=== PATIENT | female | born 1955 | race Caucasian/White ===

== ENCOUNTER 2018-12-23 23:34 | Emergency (ER) | payer MEDICARE, MEDICAID ==
[2018-12-24 00:05] LABS: #Basophils 0.1 thou/uL (0.0-0.2); #Eosinphils 0.1 thou/uL (0.0-0.7); #Lymphocytes 2.3 thou/uL (1.20-3.40); #Monocytes 0.8 thou/uL (0.11-0.59); #Neutrophils 5.8 thou/uL (1.40-6.50); %Basophils 0.8 % (0.0-1.0); %Eosinophils 0.9 % (0.0-10.0); %Lymphocytes 25.1 % (21.0-51.0); %Monocytes 8.6 % (0.0-10.0); %Neutrophils 64.6 % (42.0-75.0); Hemoglobin 14.7 g/dL (12.0-16.0); Mean Corpuscular HGB CONC 33.4 g/dL (32.0-36.0); Mean Corpuscular Hemoglobin 31.8 pg (27.0-31.0); Mean Corpuscular Volume 95.1 fL (78.0-98.0); Mean Platelet Volume 6.9 fL (7.4-10.4); Platelet Count 347 thou/uL (130-400); RBC Distribution Width 13.4 % (11.5-14.5); Red Blood Cell (RBC) Count 4.62 mill/uL (4.20-5.40)
[2018-12-24 00:28] LABS: ALT (SGPT) 18 U/L (8-55); AST (SGOT) 30 U/L (5-34); Albumin 3.7 g/dL (3.4-4.8); Alkaline Phosphatase 76 U/L (40-150); Anion Gap 16 mmol/L (10-20); BUN (Urea Nitrogen) 14 mg/dL (9.8-20.1); Bilirubin, Total 0.3 mg/dL (0.2-1.2); Calc. Creatinine Clearance 0 mL/min (70-130); Calcium 9.6 mg/dL (7.8-10.44); Carbon Dioxide 25 mmol/L (23-31); Chloride 100 mmol/L (98-107); Estimated GFR-MDRD 55; Globulin 3.8 g/dL (2.4-3.5); Glucose 124 mg/dL (80-115); Potassium 4.4 mmol/L (3.5-5.1); Protein, Total 7.5 g/dL (6.0-8.3); Sodium 137 mmol/L (136-145)
[2018-12-24 01:26] LABS: Bilirubin Negative (Negative); Blood, Urine Small (Negative); Clarity CLOUDY (Clear); Glucose, Urine (Dipstick) Negative (Negative); Leukocyte Large (Negative); Nitrite Positive (Negative); Protein, Urine (Dipstick) Negative (Neg-Trace); Specific Gravity, Urine 1.005 (1.002-1.036); Urobilinogen 0.2 mg/dL (0.2-1.0)
[2018-12-24 01:28] LABS: Pathc Cast-AUWi Flag 1.36 (0-2.49)
[2018-12-24 01:37] LABS: RBC/HPF 0-3 HPF (0-3)
[2018-12-24 01:39] LABS: Renal Epithelial None Seen HPF (0-3); Transitional Epithelial NONE SEEN HPF (0-3); Yeast-All Forms None Seen HPF (None Seen)
[2018-12-24 01:40] LABS: Bacteria/HPF 1+ HPF (None Seen); Crystals/HPF None Seen HPF (Negative); Hyaline Casts/LPF NONE SEEN LPF (0-3 Hyaline); Other Casts/LPF None Seen LPF (0-3 Hyaline); Squamous Epithelial 0-3 HPF (0-3)
[2018-12-24] MEDS ORDERED: cefTRIAXone\\ROCEPHIN 1 GM VIAL ONE (02:09)
--- NOTE | 2018-12-24 07:17 | CT ---
PRELIMINARY REPORT/[facility]/EMERGENCY AFTER HOURS PROCEDURE: EXAM: CT Head Without Contrast EXAM DATE/TIME: 12/24/2018 12:48 AM CLINICAL HISTORY: 63 years old, female; Signs and symptoms; Altered mental status/memory loss; Patient HX: 63 y/o F, with h/o down syndrome, presents to ED via EMS transport for weakness and AMS. Per family, PT was unable to get off of the floor with assistance of family as PT is normally able to do. 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 PT is verbal though has not talked as much as she normally does this evening TECHNIQUE: Imaging protocol: Axial computed tomography images of the head without contrast. COMPARISON: No relevant prior studies available. FINDINGS: Brain: There is parenchymal atrophy. Scattered areas of hypoattenuation, likely chronic small vessel ischemic change, demyelination, or gliosis. No mass, hemorrhage, or acute infarction. Ventricles: Normal. Bones/joints: Normal. Sinuses: Normal as visualized. Mastoid air cells: Fluid within the right mastoid air cells. Soft tissues: Unremarkable. IMPRESSION: No acute intracranial abnormality. Thank you for allowing us to participate in the care of your patient. Dictated and Authenticated by: Sameer Rivas MD 12/24/2018 1:30 AM Central Time ([place] & [place]) FINAL REPORT EMERGENCY AFTER HOURS BRAIN CT WITHOUT IV CONTRAST: Date: 12/24/18 Time: 0048 hours HISTORY: Altered mental status IMPRESSION: Stable atrophy and chronic white matter ischemic change without mass or bleed. Stable right mastoid o pacification. This report is in agreement with a preliminary report given by Tiffany. Transcribed Date/Time: 12/24/2018 7:40 AM
--- NOTE | 2018-12-26 09:52 | EKG ---
Test Reason : Blood Pressure : / mmHG Vent. Rate : 106 BPM Atrial Rate : 106 BPM P-R Int : 138 ms QRS Dur : 068 ms QT Int : 360 ms P-R-T Axes : 062 066 017 degrees QTc Int : 478 ms Sinus tachycardia Otherwise normal ECG Confirmed by AMAN SEVILLA DO ([id number]), newspaper copy editor ANTONIO HERNANDEZ ([id number]) on 12/26/2018 9:51:49 AM Referred By: Confirmed By:AMAN SEVILLA DO
== END 2018-12-24 04:10 | disposition home or self-care (01) ==
LOC: ERS 23:34
DX: N39.0 Urinary tract infection, site not specified (principal); Z79.899 Other long term (current) drug therapy
CPT/HCPCS: 51701; 70450; 80053; 81003; 81015; 84484; 85025; 87077; 87086; 87186; 93005; 96361; 96365; A4353; J0696

== ENCOUNTER 2020-01-26 17:18 | Emergency (ER) | payer MEDICARE, MEDICAID ==
[2020-01-26] MEDS ORDERED: Lorazepam 2 MG/ML VIAL ONE (17:42)
[2020-01-26 18:00] LABS: #Basophils 0.1 thou/uL (0.0-0.2); #Eosinphils 0.1 thou/uL (0.0-0.7); #Lymphocytes 2.7 thou/uL (1.20-3.40); #Monocytes 0.7 thou/uL (0.11-0.59); #Neutrophils 4.9 thou/uL (1.40-6.50); %Basophils 0.9 % (0.0-1.0); %Eosinophils 1.6 % (0.0-10.0); %Lymphocytes 31.6 % (21.0-51.0); %Monocytes 8.3 % (0.0-10.0); %Neutrophils 57.6 % (42.0-75.0); Hemoglobin 14.8 g/dL (12.0-16.0); Mean Corpuscular HGB CONC 33.8 g/dL (32.0-36.0); Mean Corpuscular Hemoglobin 31.9 pg (27.0-31.0); Mean Corpuscular Volume 94.4 fL (78.0-98.0); Mean Platelet Volume 7.1 fL (7.4-10.4); Platelet Count 363 thou/uL (130-400); RBC Distribution Width 13.2 % (11.5-14.5); Red Blood Cell (RBC) Count 4.65 mill/uL (4.20-5.40); White Blood Cell (WBC) Count 8.6 thou/uL (4.8-10.8)
[2020-01-26 18:21] LABS: ALT (SGPT) 20 U/L (8-55); AST (SGOT) 19 U/L (5-34); Alkaline Phosphatase 88 U/L (40-110); Anion Gap 15 mmol/L (10-20); BUN (Urea Nitrogen) 14 mg/dL (9.8-20.1); Bilirubin, Total 0.2 mg/dL (0.2-1.2); Calc. Creatinine Clearance 0 mL/min (70-130); Calcium 9.4 mg/dL (7.8-10.44); Carbon Dioxide 27 mmol/L (23-31); Chloride 102 mmol/L (98-107); Estimated GFR-MDRD 56; Globulin 3.8 g/dL (2.4-3.5); Glucose 142 mg/dL (80-115); Lipase 16 U/L (8-78); Potassium 3.9 mmol/L (3.5-5.1); Protein, Total 7.8 g/dL (6.0-8.3); Sodium 140 mmol/L (136-145)
[2020-01-26 18:28] LABS: Bacteria/HPF 4+ HPF (None Seen); Bilirubin Negative (Negative); Blood, Urine 1+ (Negative); Clarity Extra Turbid (Clear); Glucose, Urine (Dipstick) Normal (Negative); Leukocyte 500 Leu/uL (Negative); Nitrite 2+ (Negative); Protein, Urine (Dipstick) 20 mg/dL (Neg-Trace); Urobilinogen Normal mg/dL (Less than 2); WBC/HPF Greater than 50 HPF (0-3)
--- NOTE | 2020-01-26 18:53 | RAD ---
EXAM: CHEST ONE VIEW HISTORY: Chest pain. COMPARISON: None FINDINGS: Cardiac silhouette is magnified by projection. Pulmonary vasculature is within normal limits. Lung ap ices are excluded from view secondary to overlying jaw and mandible. A large hiatal hernia is seen overlying the lower midline of the chest and lower mediastinum with mild volume loss seen at the righ t lung base. Visualized lungs are otherwise clear. Osteopenia is present. IMPRESSION: 1. Large hiatal hernia with mild atelectasis right lung base. 2. No acute cardiopulmonary process. 3. Osteopenia.
== END 2020-01-26 19:11 | disposition home or self-care (01) ==
LOC: ERS 17:18
DX: N39.0 Urinary tract infection, site not specified (principal); Z79.899 Other long term (current) drug therapy; Z79.1 Long term (current) use of non-steroidal anti-inflammatories (NSAID)
CPT/HCPCS: 51701; 71045; 80053; 81003; 81015; 83690; 84484; 85025; J2060

== ENCOUNTER 2020-09-15 16:47 | Emergency (ER) | payer MEDICARE, MEDICAID, OTHER ==
[2020-09-15 17:22] LABS: Bacteria/HPF 4+ HPF (None Seen); Bilirubin Negative (Negative); Blood, Urine 2+ (Negative); Clarity Turbid (Clear); Glucose, Urine (Dipstick) Normal (Negative); Ketone, Urine Negative (Negative); Leukocyte 500 Leu/uL (Negative); Nitrite 2+ (Negative); Protein, Urine (Dipstick) 70 mg/dL (Neg-Trace); RBC/HPF Greater than 50 HPF (0-3); Squamous Epithelial 0-3 HPF (0-3); Urobilinogen Normal mg/dL (Less than 2); WBC/HPF Greater than 50 HPF (0-3); pH, Urine 6.5 (5.0-9.0)
[2020-09-15] MEDS ORDERED: cefTRIAXone\\ROCEPHIN 1 GM VIAL ONE (18:26)
== END 2020-09-15 18:47 | disposition home or self-care (01) ==
LOC: ERS 16:47
DX: N39.0 Urinary tract infection, site not specified (principal)
CPT/HCPCS: 51701; 81003; 81015; 87077; 87086; 87186; 96365; J0696

== ENCOUNTER 2020-10-07 12:53 | Emergency (ER) | payer MEDICARE, OTHER ==
[2020-10-07 13:43] LABS: #Eosinphils 0.1 thou/uL (0.0-0.7); #Lymphocytes 2.7 thou/uL (1.20-3.40); #Monocytes 0.6 thou/uL (0.11-0.59); #Neutrophils 3.9 thou/uL (1.40-6.50); %Basophils 0.6 % (0.0-1.0); %Monocytes 8.1 % (0.0-10.0); %Neutrophils 53.5 % (42.0-75.0); Mean Corpuscular HGB CONC 33.3 g/dL (32.0-36.0); Mean Corpuscular Hemoglobin 32.5 pg (27.0-31.0); Mean Corpuscular Volume 97.6 fL (78.0-98.0); Mean Platelet Volume 8.4 fL (7.4-10.4); Platelet Count 244 thou/uL (130-400); RBC Distribution Width 13.3 % (11.5-14.5); Red Blood Cell (RBC) Count 4.63 mill/uL (4.20-5.40); White Blood Cell (WBC) Count 7.4 thou/uL (4.8-10.8)
[2020-10-07 13:44] LABS: PTT 28.1 sec (22.9-36.1); Prothrombin Time 13.2 sec (12.0-14.7)
[2020-10-07 13:45] LABS: Bacteria/HPF 2+ HPF (None Seen); Bilirubin Negative (Negative); Blood, Urine 3+ (Negative); Clarity Turbid (Clear); Glucose, Urine (Dipstick) Normal (Negative); Ketone, Urine Negative (Negative); Leukocyte 250 Leu/uL (Negative); Nitrite Negative (Negative); Protein, Urine (Dipstick) 30 mg/dL (Neg-Trace); RBC/HPF Greater than 50 HPF (0-3); Specific Gravity, Urine 1.029 (1.002-1.036); Urobilinogen Normal mg/dL (Less than 2); WBC/HPF Greater than 50 HPF (0-3); pH, Urine 5.5 (5.0-9.0)
[2020-10-07] MEDS ORDERED: cefTRIAXone\\ROCEPHIN 1 GM VIAL ONE (13:47)
[2020-10-07 13:58] LABS: ALT (SGPT) 15 U/L (8-55); AST (SGOT) 18 U/L (5-34); Albumin 3.7 g/dL (3.4-4.8); Alkaline Phosphatase 80 U/L (40-110); Anion Gap 20 mmol/L (10-20); BUN (Urea Nitrogen) 17 mg/dL (9.8-20.1); Bilirubin, Total 0.5 mg/dL (0.2-1.2); Calc. Creatinine Clearance 0 mL/min (70-130); Calcium 8.8 mg/dL (7.8-10.44); Carbon Dioxide 21 mmol/L (23-31); Chloride 107 mmol/L (98-107); Globulin 3.2 g/dL (2.4-3.5); Glucose 154 mg/dL (80-115); Potassium 3.8 mmol/L (3.5-5.1); Protein, Total 6.9 g/dL (5.8-8.1); Sodium 144 mmol/L (136-145)
== END 2020-10-07 15:26 | disposition home or self-care (01) ==
LOC: ERS 12:53
DX: N39.0 Urinary tract infection, site not specified (principal); Q90.9 Down syndrome, unspecified
CPT/HCPCS: 51701; 80053; 81003; 81015; 83605; 85025; 85610; 85730; 87040; 87086; 94760; 96365; J0696

== ENCOUNTER 2020-10-28 14:24 | Emergency (ER) | payer MEDICARE, OTHER, MEDICAID ==
[~2020-10-28 14:24] MED LIST: Iopamidol-370 76% 500 ML 1 ML ONE
[2020-10-28 14:44] LABS: Bilirubin Negative (Negative); Blood, Urine Negative (Negative); Clarity Clear (Clear); Glucose, Urine (Dipstick) Normal (Negative); Ketone, Urine Negative (Negative); Leukocyte Negative Leu/uL (Negative); Nitrite Negative (Negative); Protein, Urine (Dipstick) Negative (Neg-Trace); Specific Gravity, Urine 1.021 (1.002-1.036); Urobilinogen Normal mg/dL (Less than 2); pH, Urine 6.5 (5.0-9.0)
[2020-10-28] MEDS ORDERED: Piperacillin/Tazobactam 4.5 GM VIAL ONE (15:22)
[2020-10-28 15:32] LABS: #Basophils 0.1 thou/uL (0.0-0.2); #Eosinphils 0.1 thou/uL (0.0-0.7); #Lymphocytes 1.6 thou/uL (1.20-3.40); #Monocytes 0.3 thou/uL (0.11-0.59); #Neutrophils 2.7 thou/uL (1.40-6.50); %Basophils 1.2 % (0.0-1.0); %Eosinophils 1.1 % (0.0-10.0); %Lymphocytes 33.9 % (21.0-51.0); %Monocytes 7.2 % (0.0-10.0); %Neutrophils 56.7 % (42.0-75.0); Hemoglobin 14.3 g/dL (12.0-16.0); Mean Corpuscular HGB CONC 33.4 g/dL (32.0-36.0); Mean Corpuscular Volume 98.8 fL (78.0-98.0); Mean Platelet Volume 7.7 fL (7.4-10.4); Platelet Count 265 thou/uL (130-400); RBC Distribution Width 13.6 % (11.5-14.5); Red Blood Cell (RBC) Count 4.34 mill/uL (4.20-5.40); White Blood Cell (WBC) Count 4.7 thou/uL (4.8-10.8)
[2020-10-28 15:50] LABS: ALT (SGPT) 11 U/L (8-55); AST (SGOT) 20 U/L (5-34); Albumin 3.7 g/dL (3.4-4.8); Alkaline Phosphatase 66 U/L (40-110); Anion Gap 15 mmol/L (10-20); BUN (Urea Nitrogen) 19 mg/dL (9.8-20.1); Bilirubin, Total 0.5 mg/dL (0.2-1.2); Calc. Creatinine Clearance 0 mL/min (70-130); Calcium 9.1 mg/dL (7.8-10.44); Carbon Dioxide 26 mmol/L (23-31); Chloride 105 mmol/L (98-107); Globulin 3.3 g/dL (2.4-3.5); Glucose 132 mg/dL (80-115); Lipase 8 U/L (8-78); Sodium 142 mmol/L (136-145)
[2020-10-28] MEDS ORDERED: Vancomycin 1 GM/200 ML BAG ONE (18:16)
== END 2020-10-28 20:16 | disposition home or self-care (01) ==
LOC: ERS 14:24
DX: K56.41 Fecal impaction (principal)
CPT/HCPCS: 36415; 51701; 71045; 74177; 80053; 81003; 83605; 83690; 85025; 87040; 87086; 93005; 96365; 96366; 96367; J2543; J3370; Q9967

== ENCOUNTER 2021-04-05 09:01 | Inpatient (IN) | payer MEDICARE, MEDICAID ==
[2021-04-05 10:31] LABS: Bacteria/HPF 4+ HPF (None Seen); Bilirubin Negative (Negative); Blood, Urine 3+ (Negative); Clarity Extra Turbid (Clear); Glucose, Urine (Dipstick) Normal (Negative); Ketone, Urine Negative (Negative); Leukocyte 500 Leu/uL (Negative); Nitrite 2+ (Negative); Protein, Urine (Dipstick) 50 mg/dL (Neg-Trace); RBC/HPF Greater than 50 HPF (0-3); Specific Gravity, Urine 1.019 (1.002-1.036); Squamous Epithelial 0-3 HPF (0-3); Transitional Epithelial 0-3 HPF (None Seen); Urobilinogen Normal mg/dL (Less than 2); WBC/HPF Greater than 50 HPF (0-3)
[2021-04-05 10:49] LABS: Hemoglobin 12.5 g/dL (12.0-16.0); Mean Corpuscular HGB CONC 32.2 g/dL (32.0-36.0); Mean Corpuscular Hemoglobin 31.3 pg (27.0-31.0); Mean Corpuscular Volume 97.1 fL (78.0-98.0); Mean Platelet Volume 7.4 fL (7.4-10.4); Platelet Count 294 thou/uL (130-400); RBC Distribution Width 13.1 % (11.5-14.5); White Blood Cell (WBC) Count 24.1 thou/uL (4.8-10.8)
[2021-04-05 11:11] LABS: ALT (SGPT) 43 U/L (8-55); AST (SGOT) 43 U/L (5-34); Albumin 3.3 g/dL (3.4-4.8); Alkaline Phosphatase 72 U/L (40-110); Anion Gap 14 mmol/L (10-20); BUN (Urea Nitrogen) 30 mg/dL (9.8-20.1); Bilirubin, Total 0.5 mg/dL (0.2-1.2); Calc. Creatinine Clearance 0 mL/min (70-130); Calcium 8.7 mg/dL (7.8-10.44); Carbon Dioxide 25 mmol/L (23-31); Chloride 108 mmol/L (98-107); Globulin 3.3 g/dL (2.4-3.5); Glucose 127 mg/dL (80-115); Potassium 4.5 mmol/L (3.5-5.1); Protein, Total 6.6 g/dL (5.8-8.1); Sodium 142 mmol/L (136-145)
[2021-04-05 11:18] LABS: Band 41 % (5-11); Lymphocytes 3 % (21-51); MDiff Complete? YES; Monocytes 7 % (0-10); Neutrophil 48 % (42-75); Platelet Morphology Comment Appears Adequate; Reflex for Review?? YES; Vacuoles SLIGHT
[2021-04-05] MEDS ORDERED: cefTRIAXone\\ROCEPHIN 1 GM VIAL ONE (11:42)
[2021-04-05 13:55] LABS: SARS-CoV-2 NAA Rapid Test Not Detected (NotDetected)
[2021-04-05] MEDS ORDERED: Benzonatate 100 MG CAP PO PRN (15:16)
[2021-04-05] MEDS ORDERED: Albuterol Sulfate 2.5 mg/3 ml Neb NEB PRN (15:18)
[2021-04-05] MEDS ORDERED: Ondansetron PF 4 MG/2 ML Vial IVP PRN ×2 (15:21→15:30)
[2021-04-05] MEDS ORDERED: Acetaminophen 650 MG Suppository PR PRN (15:21)
[2021-04-05] MEDS ORDERED: Acetaminophen 325 MG TAB PO PRN ×2 (15:21→15:30)
[2021-04-05] MEDS ORDERED: Ondansetron ODT 4 MG TAB PO PRN (15:21)
[2021-04-05] MEDS ORDERED: Sodium Chloride 0.9% 1,000 ML IV SCH ×2 (15:30)
[2021-04-05] MEDS ORDERED: Ondansetron ODT 4 MG TAB SL PRN (15:30)
[2021-04-05 16:25] VITALS: BMI 20.8
[2021-04-05 16:29] LABS: Lactic Acid 3.1 mmol/L (0.5-2.2)
[2021-04-05 17:11] LABS: Strep pneumo Urine Ag NEGATIVE (NEGATIVE)
[2021-04-05] MEDS: Azithromycin 500 MG in Sodium Chloride 0.9% 250 ML 250 ML IVPB SCH (17:49)
[2021-04-05] MEDS ORDERED: Sodium Chloride 0.9% 500 ML IV SCH ×2 (20:45)
[2021-04-06] MEDS ORDERED: Sodium Chloride 0.9% 500 ML IV SCH (01:00)
[2021-04-06] MEDS ORDERED: Norepinephrine 8 MG/0.9% NS 250 ML IVPB SCH (01:30)
[2021-04-06] MEDS ORDERED: Norepinephrine 8 MG/0.9% NS 250 ML ONE (01:32)
[2021-04-06] MEDS: Sodium Chloride 0.9% 1,000 ML IV SCH ×4 (01:45→20:36)
[2021-04-06 02:55] LABS: Lactic Acid 0.7 mmol/L (0.5-2.2)
[2021-04-06 02:59] LABS: Band 20 % (5-11); Eosinophils 1 % (0-10); Hemoglobin 10.8 g/dL (12.0-16.0); Lymphocytes 17 % (21-51); MDiff Complete? YES; Mean Corpuscular HGB CONC 33.5 g/dL (32.0-36.0); Mean Corpuscular Hemoglobin 32.7 pg (27.0-31.0); Mean Corpuscular Volume 97.5 fL (78.0-98.0); Mean Platelet Volume 7.3 fL (7.4-10.4); Monocytes 1 % (0-10); Neutrophil 59 % (42-75); Platelet Count 257 thou/uL (130-400); RBC Distribution Width 13.1 % (11.5-14.5)
[2021-04-06 03:00] LABS: Anion Gap 10 mmol/L (10-20); BUN (Urea Nitrogen) 14 mg/dL (9.8-20.1); Calc. Creatinine Clearance 54 mL/min (70-130); Carbon Dioxide 21 mmol/L (23-31); Chloride 115 mmol/L (98-107); Potassium 3.8 mmol/L (3.5-5.1); Sodium 142 mmol/L (136-145)
[2021-04-06 03:01] LABS: Calcium 7.9 mg/dL (7.8-10.44); Glucose 110 mg/dL (80-115)
[2021-04-06] MEDS ORDERED: cefTRIAXone\\ROCEPHIN 1 GM VIAL ONE (08:33)
[2021-04-06] MEDS ORDERED: Sodium Chloride 0.9% 100 ML ONE (08:34)
[2021-04-06] MEDS ORDERED: Enoxaparin Sodium 40 MG/0.4 ML SYRINGE ONE (08:35)
[2021-04-06] MEDS: Enoxaparin Sodium 30 MG/0.3 ML SYRINGE SC SCH (08:41)
[2021-04-06] MEDS: cefTRIAXone\\ROCEPHIN 1 GM in Sodium Chloride 0.9% 100 ML IVPB SCH (12:11)
[2021-04-06] MEDS: Azithromycin 500 MG in Sodium Chloride 0.9% 250 ML 250 ML IVPB SCH (17:10)
[2021-04-07] MEDS: Sodium Chloride 0.9% 1,000 ML IV SCH ×3 (03:23→17:48)
[2021-04-07] MEDS: Pantoprazole 40 MG VIAL IVP SCH (09:05)
[2021-04-07] MEDS: Enoxaparin Sodium 30 MG/0.3 ML SYRINGE SC SCH (09:05)
[2021-04-07] MEDS: cefTRIAXone\\ROCEPHIN 1 GM in Sodium Chloride 0.9% 100 ML IVPB SCH (11:04)
[2021-04-07 12:09] LABS: #Basophils 0.1 thou/uL (0.0-0.2); #Eosinphils 0.1 thou/uL (0.0-0.7); #Lymphocytes 1.4 thou/uL (1.20-3.40); #Monocytes 0.5 thou/uL (0.11-0.59); #Neutrophils 5.1 thou/uL (1.40-6.50); %Basophils 0.8 % (0.0-1.0); %Eosinophils 1.9 % (0.0-10.0); %Lymphocytes 19.6 % (21.0-51.0); %Monocytes 7.4 % (0.0-10.0); %Neutrophils 70.4 % (42.0-75.0); Hemoglobin 12.6 g/dL (12.0-16.0); Mean Corpuscular HGB CONC 33.4 g/dL (32.0-36.0); Mean Corpuscular Hemoglobin 32.6 pg (27.0-31.0); Mean Corpuscular Volume 97.5 fL (78.0-98.0); Mean Platelet Volume 7.6 fL (7.4-10.4); Platelet Count 258 thou/uL (130-400); RBC Distribution Width 12.8 % (11.5-14.5); Red Blood Cell (RBC) Count 3.86 mill/uL (4.20-5.40); White Blood Cell (WBC) Count 7.3 thou/uL (4.8-10.8)
[2021-04-07 12:26] LABS: Anion Gap 12 mmol/L (10-20); BUN (Urea Nitrogen) 6 mg/dL (9.8-20.1); Calc. Creatinine Clearance 57 mL/min (70-130); Calcium 8.6 mg/dL (7.8-10.44); Carbon Dioxide 25 mmol/L (23-31); Chloride 108 mmol/L (98-107); Glucose 95 mg/dL (80-115); Potassium 3.2 mmol/L (3.5-5.1); Sodium 142 mmol/L (136-145)
[2021-04-07] MEDS ORDERED: Potassium Chloride 20 MEQ TAB PO SCH (14:45)
[2021-04-07] MEDS ORDERED: Potassium Bicarbonate/Cit Ac 20 MEQ TAB PO SCH (15:00)
[2021-04-07] MEDS: Azithromycin 500 MG in Sodium Chloride 0.9% 250 ML 250 ML IVPB SCH (17:47)
[2021-04-08] MEDS: Sodium Chloride 0.9% 1,000 ML IV SCH ×2 (00:04→06:00)
[2021-04-08] MEDS ORDERED: Potassium Chloride 20 MEQ TAB PO SCH (08:30)
[2021-04-08 08:47] LABS: Anion Gap 9 mmol/L (10-20); BUN (Urea Nitrogen) 6 mg/dL (9.8-20.1); Calc. Creatinine Clearance 61 mL/min (70-130); Calcium 8.6 mg/dL (7.8-10.44); Carbon Dioxide 27 mmol/L (23-31); Chloride 108 mmol/L (98-107); Glucose 112 mg/dL (80-115); Potassium 3.3 mmol/L (3.5-5.1); Sodium 141 mmol/L (136-145)
[2021-04-08 08:50] LABS: #Basophils 0.1 thou/uL (0.0-0.2); #Eosinphils 0.2 thou/uL (0.0-0.7); #Lymphocytes 1.5 thou/uL (1.20-3.40); #Monocytes 0.7 thou/uL (0.11-0.59); #Neutrophils 5.7 thou/uL (1.40-6.50); %Basophils 0.6 % (0.0-1.0); %Eosinophils 2.4 % (0.0-10.0); %Lymphocytes 18.7 % (21.0-51.0); %Neutrophils 70.2 % (42.0-75.0); Hemoglobin 11.6 g/dL (12.0-16.0); Mean Corpuscular HGB CONC 31.5 g/dL (32.0-36.0); Mean Corpuscular Hemoglobin 30.3 pg (27.0-31.0); Mean Corpuscular Volume 96.3 fL (78.0-98.0); Mean Platelet Volume 7.7 fL (7.4-10.4); Platelet Count 253 thou/uL (130-400); RBC Distribution Width 12.6 % (11.5-14.5); Red Blood Cell (RBC) Count 3.83 mill/uL (4.20-5.40); White Blood Cell (WBC) Count 8.1 thou/uL (4.8-10.8)
[2021-04-08] MEDS ORDERED: Sodium Chloride 0.9% 1,000 ML IV SCH (08:58)
[2021-04-08] MEDS: Pantoprazole 40 MG VIAL IVP SCH (09:40)
[2021-04-08] MEDS: Enoxaparin Sodium 30 MG/0.3 ML SYRINGE SC SCH (09:40)
[2021-04-08] MEDS: NS 0.9% w/ 20 MEQ KCL 1,000 ML/1,000 ML BAG IV SCH ×2 (09:40→22:39)
[2021-04-08] MEDS: Saccharomyces boulardii 250 MG CAP PO SCH (09:41)
[2021-04-08] MEDS: cefTRIAXone\\ROCEPHIN 1 GM in Sodium Chloride 0.9% 100 ML IVPB SCH (11:34)
[2021-04-08] MEDS: Azithromycin 500 MG in Sodium Chloride 0.9% 250 ML 250 ML IVPB SCH (16:59)
[2021-04-08] MEDS ORDERED: Loratadine 10 MG TAB PO SCH (21:00)
[2021-04-08] MEDS: RisperDAL Oral Solution 1 MG/ML UDCUP PO SCH (21:09)
[2021-04-09] MEDS ORDERED: Levothyroxine Sodium 112 MCG TAB PO SCH (06:00)
[2021-04-09] MEDS ORDERED: Azithromycin 250 MG TAB PO SCH (09:00)
[2021-04-09] MEDS ORDERED: Cefdinir 300 MG CAP PO SCH (09:00)
[2021-04-09] MEDS: Pantoprazole 40 MG VIAL IVP SCH (10:28)
[2021-04-09] MEDS: Enoxaparin Sodium 30 MG/0.3 ML SYRINGE SC SCH (10:29)
[2021-04-09] MEDS: RisperDAL Oral Solution 1 MG/ML UDCUP PO SCH (10:29)
[2021-04-09] MEDS: Saccharomyces boulardii 250 MG CAP PO SCH (10:30)
[2021-04-09] MEDS ORDERED: cloNIDine 0.1 MG TAB PO PRN (10:30)
[2021-04-09 14:29] VITALS: BP 118/74; TEMP 98.8
[2021-04-09 23:36] LABS: L.pneumophilia Abs <0.91 OD ratio (0.00-0.90)
== END 2021-04-09 15:11 | DRG 871 ==
LOC: ERS 09:01 → T4-A 12:19 → PACU-TCU 04-06 02:44 → 2NO 04-06 18:48
PROVIDERS: ADMIT Internal Medicine; ATTEND Internal Medicine
PROC: 3E033XZ Introduction of Vasopressor into Peripheral Vein, Percutaneous Approach (ICD-10-PCS; principal; 2021-04-06)
DX: A41.51 Sepsis due to Escherichia coli [E. coli] (principal); Z20.822 Contact with and (suspected) exposure to COVID-19; G92 Toxic encephalopathy; R65.21 Severe sepsis with septic shock; J15.6 Pneumonia due to other Gram-negative bacteria; J69.0 Pneumonitis due to inhalation of food and vomit; Q90.9 Down syndrome, unspecified; N30.90 Cystitis, unspecified without hematuria; E03.9 Hypothyroidism, unspecified; G89.29 Other chronic pain; M54.9 Dorsalgia, unspecified; M25.569 Pain in unspecified knee; J30.2 Other seasonal allergic rhinitis; R79.89 Other specified abnormal findings of blood chemistry; E86.0 Dehydration; E87.6 Hypokalemia; F41.9 Anxiety disorder, unspecified; Z90.49 Acquired absence of other specified parts of digestive tract; Z79.899 Other long term (current) drug therapy; Z79.890 Hormone replacement therapy
CPT/HCPCS: 0240U; 36415; 51701; 70450; 71045; 76770; 80048; 80053; 81003; 81015; 83605; 83735; 84443; 84484; 85025; 85060; 86713; 87040; 87077; 87086; 87186; 87449; 93005; 96365; 96366; C9113; J0456; J0696; J1650; J3480; J3490; J7030; J7050

== ENCOUNTER 2021-12-14 00:54 | Observation (INO) | payer MEDICARE, MEDICAID ==
[2021-12-14 01:34] LABS: #Eosinphils 0.1 thou/uL (0.0-0.7); #Lymphocytes 1.1 thou/uL (1.20-3.40); #Monocytes 0.7 thou/uL (0.11-0.59); #Neutrophils 4.9 thou/uL (1.40-6.50); %Basophils 0.1 % (0.0-1.0); %Eosinophils 1.2 % (0.0-10.0); %Lymphocytes 16.2 % (21.0-51.0); %Monocytes 9.7 % (0.0-10.0); %Neutrophils 72.7 % (42.0-75.0); Hemoglobin 12.6 g/dL (12.0-16.0); Mean Corpuscular HGB CONC 31.7 g/dL (32.0-36.0); Mean Corpuscular Hemoglobin 31.2 pg (27.0-31.0); Mean Corpuscular Volume 98.5 fL (78.0-98.0); Mean Platelet Volume 6.7 fL (7.4-10.4); Platelet Count 275 thou/uL (130-400); RBC Distribution Width 13.3 % (11.5-14.5); Red Blood Cell (RBC) Count 4.04 mill/uL (4.20-5.40); White Blood Cell (WBC) Count 6.7 thou/uL (4.8-10.8)
[2021-12-14 01:39] LABS: Bacteria/HPF 3+ HPF (None Seen); Bilirubin Negative (Negative); Blood, Urine 3+ (Negative); Clarity Extra Turbid (Clear); Glucose, Urine (Dipstick) Normal (Negative); Ketone, Urine Negative (Negative); Leukocyte 500 Leu/uL (Negative); Nitrite 2+ (Negative); Protein, Urine (Dipstick) 50 mg/dL (Neg-Trace); RBC/HPF Greater than 50 HPF (0-3); Specific Gravity, Urine 1.019 (1.002-1.036); Squamous Epithelial 21-50 HPF (0-3); Urobilinogen Normal mg/dL (Less than 2); WBC/HPF Greater than 50 HPF (0-3)
[2021-12-14] MEDS ORDERED: cefTRIAXone\\ROCEPHIN 1 GM VIAL ONE (01:49)
[2021-12-14] MEDS ORDERED: cefTRIAXone\\ROCEPHIN 2 GM VIAL ONE (01:50)
[2021-12-14 01:54] LABS: ALT (SGPT) 11 U/L (8-55); AST (SGOT) 16 U/L (5-34); Albumin 3.3 g/dL (3.4-4.8); Alkaline Phosphatase 64 U/L (40-110); Anion Gap 14 mmol/L (10-20); BUN (Urea Nitrogen) 24 mg/dL (9.8-20.1); Bilirubin, Total 0.2 mg/dL (0.2-1.2); Calc. Creatinine Clearance 0 mL/min (70-130); Calcium 8.3 mg/dL (7.8-10.44); Carbon Dioxide 25 mmol/L (23-31); Chloride 106 mmol/L (98-107); Globulin 2.9 g/dL (2.4-3.5); Glucose 106 mg/dL (80-115); Potassium 4.7 mmol/L (3.5-5.1); Protein, Total 6.2 g/dL (5.8-8.1); Sodium 140 mmol/L (136-145)
[2021-12-14] MEDS ORDERED: Ondansetron PF 4 MG/2 ML Vial IVP PRN (03:14)
[2021-12-14] MEDS ORDERED: Ondansetron ODT 4 MG TAB PO PRN (03:14)
[2021-12-14] MEDS ORDERED: Acetaminophen 650 MG Suppository PR PRN (03:14)
[2021-12-14] MEDS ORDERED: Acetaminophen 325 MG TAB PO PRN (03:14)
[2021-12-14 03:32] LABS: SARS-CoV-2 NAA Rapid Test DETECTED (NotDetected)
[2021-12-14] MEDS ORDERED: Lactated Ringer's 1,000 ML IV SCH (04:00)
[2021-12-14 05:26] VITALS: BMI 24.7
[2021-12-14] MEDS ORDERED: Levothyroxine Sodium 112 MCG TAB PO SCH (06:00)
[2021-12-14] MEDS ORDERED: Levothyroxine Sodium 25 MCG TAB PO SCH (06:00)
[2021-12-14] MEDS ORDERED: risperiDONE 0.25 MG TAB PO SCH (09:00)
[2021-12-14] MEDS ORDERED: Enoxaparin Sodium 40 MG/0.4 ML SYRINGE SC SCH (09:00)
[2021-12-14] MEDS ORDERED: Non-Formulary Item 1 EACH (Levothyroxine Sodium [Levothyroxine Sodium] 137 MCG Tablet) PO SCH (09:00)
[2021-12-14] MEDS ORDERED: Polyethylene Glycol 3350 17 GM Packet PO SCH (09:00)
[2021-12-14] MEDS ORDERED: Saccharomyces boulardii 250 MG CAP PO SCH (09:00)
[2021-12-14 12:57] VITALS: TEMP 97.8
[2021-12-14 14:26] VITALS: BP 128/60
[2021-12-14] MEDS ORDERED: Loratadine 10 MG TAB PO SCH (21:00)
[2021-12-14] MEDS ORDERED: Nitrofurantoin Monohyd/M-Cryst 100 MG CAP PO SCH (21:00)
[2021-12-15] MEDS ORDERED: cefTRIAXone\\ROCEPHIN 1 GM in Sodium Chloride 0.9% 100 ML IVPB SCH (02:00)
== END 2021-12-14 16:30 ==
LOC: ERS 00:54 → T4-A 03:05
PROVIDERS: ADMIT Student in an Organized Health Care Education/Training Program; ATTEND Student in an Organized Health Care Education/Training Program
DX: N39.0 Urinary tract infection, site not specified (principal); G93.40 Encephalopathy, unspecified; U07.1 COVID-19; Q90.9 Down syndrome, unspecified; E03.9 Hypothyroidism, unspecified; E78.5 Hyperlipidemia, unspecified; J30.2 Other seasonal allergic rhinitis; K44.9 Diaphragmatic hernia without obstruction or gangrene; Z79.890 Hormone replacement therapy; Z79.899 Other long term (current) drug therapy; Z66 Do not resuscitate
CPT/HCPCS: 71045; 80053; 83605; 83880; 84484; 85025; 87040; 87077; 87086; 87186; 93005; U0002; 36415; 81003; 81015; 96372; G0378; J0696; J1650; J7120

== ENCOUNTER 2022-07-15 14:35 | Emergency (ER) | payer MEDICARE, OTHER ==
[2022-07-15 15:43] LABS: #Basophils 0.1 thou/uL (0.0-0.2); #Eosinphils 0.2 thou/uL (0.0-0.7); #Lymphocytes 2.8 thou/uL (1.20-3.40); #Monocytes 0.9 thou/uL (0.11-0.59); #Neutrophils 6.1 thou/uL (1.40-6.50); %Basophils 0.6 % (0.0-1.0); %Eosinophils 1.5 % (0.0-10.0); %Lymphocytes 27.8 % (21.0-51.0); %Monocytes 8.9 % (0.0-10.0); %Neutrophils 61.3 % (42.0-75.0); Mean Corpuscular HGB CONC 30.1 g/dL (32.0-36.0); Mean Corpuscular Hemoglobin 30.1 pg (27.0-31.0); Mean Platelet Volume 7.9 fL (7.4-10.4); Platelet Count 243 10x3/uL (130-400); RBC Distribution Width 14.2 % (11.5-14.5); Red Blood Cell (RBC) Count 4.66 mill/uL (4.20-5.40)
[2022-07-15 16:21] LABS: ALT (SGPT) 22 U/L (8-55); AST (SGOT) 24 U/L (5-34); Albumin 3.1 g/dL (3.4-4.8); Alkaline Phosphatase 96 U/L (40-110); Anion Gap 18 mmol/L (10-20); BUN (Urea Nitrogen) 21 mg/dL (9.8-20.1); Bilirubin, Total 0.3 mg/dL (0.2-1.2); Calc. Creatinine Clearance 0 mL/min (70-130); Calcium 8.6 mg/dL (7.8-10.44); Carbon Dioxide 17 mmol/L (23-31); Chloride 110 mmol/L (98-107); Estimated GFR 60; Globulin 3.9 g/dL (2.4-3.5); Glucose 90 mg/dL (80-115); Potassium 4.5 mmol/L (3.5-5.1); Sodium 140 mmol/L (136-145)
== END 2022-07-15 17:19 ==
LOC: ERS 14:35
DX: R09.02 Hypoxemia (principal); E03.9 Hypothyroidism, unspecified
CPT/HCPCS: 36415; 71045; 80053; 85025; 93005

== ENCOUNTER 2022-09-04 10:14 | Emergency (ER) | payer MEDICARE, OTHER ==
[2022-09-04 11:06] LABS: Hemoglobin 15.8 g/dL (12.0-16.0); Mean Corpuscular HGB CONC 32.1 g/dL (32.0-36.0); Mean Corpuscular Volume 96.4 fl (78.0-98.0); Platelet Count 260 10x3/uL (130-400); RBC Distribution Width 14.5 % (11.5-14.5); Red Blood Cell (RBC) Count 5.09 mill/uL (4.20-5.40); White Blood Cell (WBC) Count 6.1 10x3/uL (4.8-10.8)
[2022-09-04 11:32] LABS: Band 2 % (5-11); Eosinophils 3 % (0-10); Lymphocytes 32 % (21-51); MDiff Complete? YES; Metamyelocyte 3 % (0-0); Monocytes 5 % (0-10); Neutrophil 53 % (42-75); RBC Morphology Normal; Reactive Lymphocytes 1 % (0-10)
[2022-09-04 11:59] LABS: Albumin 3.6 g/dL (3.4-4.8)
[2022-09-04 12:00] LABS: Chloride 103 mmol/L (98-107); Potassium 4.3 mmol/L (3.5-5.1); Sodium 141 mmol/L (136-145)
[2022-09-04 12:01] LABS: Calcium 9.5 mg/dL (7.8-10.44); Glucose 103 mg/dL (80-115)
[2022-09-04 12:02] LABS: Protein, Total 7.6 g/dL (5.8-8.1)
[2022-09-04 12:03] LABS: Anion Gap 11 mmol/L (10-20); Bilirubin, Total 0.4 mg/dL (0.2-1.2); Carbon Dioxide 31 mmol/L (23-31)
[2022-09-04 12:04] LABS: Alkaline Phosphatase 83 U/L (40-110)
[2022-09-04 12:05] LABS: Calc. Creatinine Clearance 0 mL/min (70-130); Estimated GFR 63
[2022-09-04 12:06] LABS: BUN (Urea Nitrogen) 18 mg/dL (9.8-20.1)
[2022-09-04 12:07] LABS: ALT (SGPT) 24 U/L (8-55); AST (SGOT) 18 U/L (5-34)
[2022-09-04 12:30] LABS: Bilirubin Negative (Negative); Blood, Urine Large (Negative); Glucose, Urine (Dipstick) Negative (Negative); Ketone, Urine Negative (Negative); Leukocyte Large (Negative); Nitrite Negative (Negative); Protein, Urine (Dipstick) 100 mg/dL (Neg-Trace); Urobilinogen 0.2 mg/dL (Less than 2); pH, Urine 7.5 (5.0-9.0)
[2022-09-04 12:34] LABS: Clarity Cloudy (Clear)
[2022-09-04 12:35] LABS: RBC/HPF 21-50 HPF (0-3); WBC/HPF Greater than 50 HPF (0-3)
[2022-09-04 12:36] LABS: Bacteria/HPF 2+ HPF (None Seen)
== END 2022-09-04 14:30 ==
LOC: ERS 10:14
DX: R41.82 Altered mental status, unspecified (principal); N39.0 Urinary tract infection, site not specified; E03.9 Hypothyroidism, unspecified
CPT/HCPCS: 70450; 71045; 80053; 81003; 81015; 84484; 85025; 87086; 93005

== ENCOUNTER 2023-04-13 15:33 | Inpatient (IN) | payer OTHER, MEDICAID ==
[~2023-04-13 15:33] MED LIST changes: -Iopamidol-370 76% 500 ML 1 ML ONE; +Iopamidol-370 76% 500 ML MDV (1 ML CHARGE) ONE
[2023-04-13 17:03] LABS: Bilirubin Negative (Negative); Blood, Urine 2+ (Negative); CAUTI Indications for Culture Fever or rigors; Clarity Extra Turbid (Clear); Glucose, Urine (Dipstick) Normal (Negative); Ketone, Urine Negative (Negative); Leukocyte 500 Leu/uL (Negative); Nitrite Negative (Negative); Protein, Urine (Dipstick) 100 mg/dL (Neg-Trace); Specific Gravity, Urine 1.012 (1.002-1.036); Squamous Epithelial 0-3 HPF (0-3); Urobilinogen Normal mg/dL (Less than 2); WBC/HPF Greater than 50 HPF (0-3)
[2023-04-13 17:07] LABS: Bacteria/HPF 3+ HPF (None Seen)
[2023-04-13 17:08] LABS: Urine Culture Reflex Yes Yes
[2023-04-13 17:45] LABS: Hematocrit 48.4 % (36.0-47.0); Hemoglobin 14.9 g/dL (12.0-16.0); Mean Corpuscular HGB CONC 30.8 g/dL (32.0-36.0); Mean Corpuscular Volume 103.9 fl (78.0-98.0); Mean Platelet Volume 10.5 fL (7.4-10.4); Platelet Count 274 10x3/uL (130-400); RBC Distribution Width 17.1 % (11.5-14.5); Red Blood Cell (RBC) Count 4.66 mill/uL (4.20-5.40)
[2023-04-13] MEDS ORDERED: Sodium Chloride 0.9% 100 ML ONE (17:47)
[2023-04-13] MEDS ORDERED: cefTRIAXone (ROCEPHIN) 2 GM VIAL ONE (17:47)
[2023-04-13 17:50] LABS: Delete Auto Diff?? YES; Manual Diff?? YES
[2023-04-13 18:11] LABS: Troponin I Less than 0.010 ng/mL (< 0.028)
[2023-04-13 18:13] LABS: SARS-CoV-2 NAA Rapid Test Not Detected (NotDetected)
[2023-04-13 18:14] LABS: ALT (SGPT) 32 U/L (8-55); AST (SGOT) 33 U/L (5-34); Albumin 3.1 g/dL (3.4-4.8); Alkaline Phosphatase 71 U/L (40-110); Anion Gap 15 mmol/L (10-20); BUN (Urea Nitrogen) 22 mg/dL (9.8-20.1); Bilirubin, Total 0.2 mg/dL (0.2-1.2); Calc. Creatinine Clearance 0 mL/min (70-130); Calcium 8.1 mg/dL (7.8-10.44); Carbon Dioxide 24 mmol/L (23-31); Chloride 119 mmol/L (98-107); Estimated GFR 48; Globulin 3.6 g/dL (2.4-3.5); Glucose 113 mg/dL (80-115); Lipase 5 U/L (8-78); Potassium 3.7 mmol/L (3.5-5.1); Protein, Total 6.7 g/dL (5.8-8.1)
[2023-04-13 18:21] LABS: Sodium 154 mmol/L (136-145)
[2023-04-13 18:30] LABS: Anisocytosis SLIGHT = 6-15 cells HPF (0-5); Band 43 % (5-11); CellaVision Operator ID LAB.MJL; Lymphocytes 3 % (21-51); Macrocytosis SLIGHT = 6-15 cells HPF (0-5); Metamyelocyte 6 % (0-0); Monocytes 2 % (0-10); Neutrophil 44 % (42-75); Platelet Adequacy Comment Platelets Normal; Reflex for Review?? YES; Total Cell Count 100; Vacuoles SLIGHT
[2023-04-13] MEDS ORDERED: Acetaminophen 325 MG TAB PO PRN (19:56)
[2023-04-13] MEDS ORDERED: Ondansetron ODT 4 MG TAB PO PRN (19:56)
[2023-04-13] MEDS ORDERED: Acetaminophen 650 MG Suppository ONE (19:58)
[2023-04-13 20:07] LABS: Anion Gap 13 mmol/L (10-20); BUN (Urea Nitrogen) 22 mg/dL (9.8-20.1); Calc. Creatinine Clearance 0 mL/min (70-130); Calcium 8.1 mg/dL (7.8-10.44); Carbon Dioxide 27 mmol/L (23-31); Chloride 117 mmol/L (98-107); Estimated GFR 46; Glucose 139 mg/dL (80-115); Potassium 3.4 mmol/L (3.5-5.1)
[2023-04-13 20:14] LABS: Sodium 154 mmol/L (136-145)
[2023-04-13] MEDS ORDERED: cefTRIAXone\\ROCEPHIN 1 GM in Sodium Chloride 0.9% 100 ML IVPB SCH (20:30)
[2023-04-13] MEDS ORDERED: Sodium Chloride 0.9% 1,000 ML IV SCH ×2 (20:30→21:30)
[2023-04-13] MEDS ORDERED: Sodium Chloride 0.9% 500 ML IV SCH (20:30)
[2023-04-13] MEDS ORDERED: Loratadine 10 MG TAB PO SCH (21:00)
[2023-04-13] MEDS ORDERED: Fluticasone Propionate Nasal Spray 16 gm Bottle NASAL PRN (21:04)
[2023-04-13] MEDS ORDERED: Azelastine 137 MCG/NASAL Spray 30 ML NS PRN (21:04)
[2023-04-13 21:15] LABS: Lactic Acid 2.4 mmol/L (0.5-2.2)
[2023-04-13 22:28] VITALS: BMI 23.3
[2023-04-13 22:31] LABS: Magnesium 1.8 mg/dL (1.6-2.6); Phosphorus 3.3 mg/dL (2.3-4.7)
[2023-04-13 22:33] LABS: Calcium 8.3 mg/dL (7.8-10.44); Chloride 118 mmol/L (98-107); Potassium 3.7 mmol/L (3.5-5.1)
[2023-04-13 22:34] LABS: Glucose 126 mg/dL (80-115)
[2023-04-13 22:35] LABS: Anion Gap 16 mmol/L (10-20); Carbon Dioxide 23 mmol/L (23-31)
[2023-04-13 22:37] LABS: Calc. Creatinine Clearance 36 mL/min (70-130); Estimated GFR 47
[2023-04-13 22:38] LABS: BUN (Urea Nitrogen) 22 mg/dL (9.8-20.1)
[2023-04-13 22:43] LABS: Sodium 153 mmol/L (136-145)
[2023-04-13] MEDS ORDERED: Potassium Phosphate 15 MMOL in Sodium Chloride 0.9% 100 ML IVPB SCH (23:00)
[2023-04-13] MEDS: Famotidine 20 MG TAB PO SCH (23:27)
[2023-04-13] MEDS: Valproate Sodium 250 mg/5 ml UD Cup PO SCH (23:28)
[2023-04-14 01:03] LABS: Anion Gap 14 mmol/L (10-20); BUN (Urea Nitrogen) 20 mg/dL (9.8-20.1); Calc. Creatinine Clearance 39 mL/min (70-130); Carbon Dioxide 24 mmol/L (23-31); Chloride 119 mmol/L (98-107); Estimated GFR 51; Glucose 129 mg/dL (80-115); Potassium 3.9 mmol/L (3.5-5.1)
[2023-04-14 01:14] LABS: Sodium 153 mmol/L (136-145)
[2023-04-14] MEDS ORDERED: Lactated Ringer's 1,000 ML IV SCH ×2 (01:30→06:15)
[2023-04-14] MEDS ORDERED: Lactated Ringer's 500 ML IV SCH ×2 (01:30→06:00)
[2023-04-14 05:29] LABS: Hematocrit 40.1 % (36.0-47.0); Hemoglobin 12.6 g/dL (12.0-16.0); Mean Corpuscular HGB CONC 31.4 g/dL (32.0-36.0); Mean Corpuscular Hemoglobin 32.5 pg (27.0-31.0); Mean Corpuscular Volume 103.4 fl (78.0-98.0); Platelet Count 237 10x3/uL (130-400); RBC Distribution Width 17.3 % (11.5-14.5); Red Blood Cell (RBC) Count 3.88 mill/uL (4.20-5.40); White Blood Cell (WBC) Count 18.5 10x3/uL (4.8-10.8)
[2023-04-14 05:30] LABS: Delete Auto Diff?? YES; Manual Diff?? YES
[2023-04-14 05:52] LABS: Anion Gap 13 mmol/L (10-20); BUN (Urea Nitrogen) 20 mg/dL (9.8-20.1); Calc. Creatinine Clearance 44 mL/min (70-130); Carbon Dioxide 25 mmol/L (23-31); Chloride 118 mmol/L (98-107); Estimated GFR 60; Glucose 124 mg/dL (80-115); Potassium 3.7 mmol/L (3.5-5.1)
[2023-04-14 05:57] LABS: Sodium 152 mmol/L (136-145)
[2023-04-14 06:03] LABS: Band 45 % (5-11); CellaVision Operator ID LAB.CLH1; Lymphocytes 9 % (21-51); Macrocytosis SLIGHT = 6-15 cells HPF (0-5); Monocytes 7 % (0-10); Neutrophil 39 % (42-75); Platelet Adequacy Comment Platelets Normal; Polychromasia SLIGHT = 2-3 cells HPF (0-2); Total Cell Count 100
[2023-04-14] MEDS: Levothyroxine 150 MCG TAB PO SCH (06:42)
[2023-04-14] MEDS: Floranex 1 GM Packet PO SCH (08:30)
[2023-04-14] MEDS: Cholecalciferol 1,000 UNITS (25 MCG) TAB PO SCH (08:31)
[2023-04-14] MEDS: Valproate Sodium 250 mg/5 ml UD Cup PO SCH (08:32)
[2023-04-14] MEDS: Sertraline 100 MG TAB PO SCH (08:32)
[2023-04-14] MEDS: Multivitamin W/ Minerals 1 TAB PO SCH (08:32)
[2023-04-14] MEDS ORDERED: cefTRIAXone\\ROCEPHIN 1 GM in Sodium Chloride 0.9% 100 ML IVPB SCH (09:00)
[2023-04-14] MEDS ORDERED: Magnesium Oxide 400 MG TAB PO SCH (09:00)
[2023-04-14 14:33] LABS: Anion Gap 11 mmol/L (10-20); BUN (Urea Nitrogen) 14 mg/dL (9.8-20.1); Calc. Creatinine Clearance 55 mL/min (70-130); Calcium 8.8 mg/dL (7.8-10.44); Carbon Dioxide 31 mmol/L (23-31); Chloride 117 mmol/L (98-107); Estimated GFR 78; Glucose 86 mg/dL (80-115); Potassium 4.4 mmol/L (3.5-5.1)
[2023-04-14 14:45] LABS: Sodium 155 mmol/L (136-145)
[2023-04-14] MEDS: Dextrose 5 %-0.45 % NaCl 1,000 ML IV SCH (15:10)
[2023-04-14] MEDS: cefTRIAXone\\ROCEPHIN 1 GM in Sodium Chloride 0.9% 100 ML IVPB SCH (18:37)
[2023-04-14] MEDS ORDERED: Magnesium 2 GM/50 ML(in water) 2 GM in Premix Bag 1 BAG IVPB SCH (21:00)
[2023-04-14 21:07] LABS: Anion Gap 9 mmol/L (10-20); BUN (Urea Nitrogen) 11 mg/dL (9.8-20.1); Calc. Creatinine Clearance 59 mL/min (70-130); Calcium 8.6 mg/dL (7.8-10.44); Carbon Dioxide 30 mmol/L (23-31); Chloride 114 mmol/L (98-107); Estimated GFR 85; Glucose 93 mg/dL (80-115); Potassium 3.3 mmol/L (3.5-5.1); Sodium 150 mmol/L (136-145)
[2023-04-14] MEDS: Famotidine 20 MG TAB PO SCH (21:52)
[2023-04-14] MEDS: Valproate Sodium 500 MG in Sodium Chloride 0.9% 100 ML IVPB SCH (21:52)
[2023-04-15] MEDS ORDERED: Potassium Phosphate 15 MMOL in Sodium Chloride 0.9% 100 ML IVPB SCH (02:00)
[2023-04-15 05:30] LABS: #Basophils 0.1 thou/uL (0.0-0.2); #Eosinphils 0.3 thou/uL (0.0-0.7); #Monocytes 0.7 thou/uL (0.11-0.59); %Basophils 0.6 % (0.0-1.0); %Eosinophils 2.3 % (0.0-10.0); %Lymphocytes 12.2 % (21.0-51.0); %Monocytes 5.7 % (0.0-10.0); %Neutrophils 77.7 % (42.0-75.0); Hematocrit 39.2 % (36.0-47.0); Hemoglobin 12.3 g/dL (12.0-16.0); Mean Corpuscular HGB CONC 31.4 g/dL (32.0-36.0); Mean Corpuscular Volume 102.1 fl (78.0-98.0); Mean Platelet Volume 10.7 fL (7.4-10.4); Platelet Count 211 10x3/uL (130-400); RBC Distribution Width 16.9 % (11.5-14.5); Red Blood Cell (RBC) Count 3.84 mill/uL (4.20-5.40); White Blood Cell (WBC) Count 11.5 10x3/uL (4.8-10.8)
[2023-04-15 05:33] LABS: Manual Diff?? YES
[2023-04-15] MEDS: Levothyroxine 150 MCG TAB PO SCH (05:55)
[2023-04-15] MEDS: Dextrose 5 %-0.45 % NaCl 1,000 ML IV SCH (05:55)
[2023-04-15 06:23] LABS: Anisocytosis SLIGHT = 6-15 cells HPF (0-5); Band 15 % (5-11); CellaVision Operator ID lab.sh2; Lymphocytes 3 % (21-51); Macrocytosis MODERATE=16-30 cells HPF (0-5); Monocytes 6 % (0-10); Neutrophil 76 % (42-75); Platelet Adequacy Comment Platelets Normal; Polychromasia SLIGHT = 2-3 cells HPF (0-2); Smudge Cells 30.3 %; Total Cell Count 99
[2023-04-15] MEDS ORDERED: Dextrose 5 %-0.45 % NaCl 1,000 ML IV SCH (07:34)
[2023-04-15] MEDS: Sertraline 100 MG TAB PO SCH (09:30)
[2023-04-15] MEDS: Cholecalciferol 1,000 UNITS (25 MCG) TAB PO SCH (09:30)
[2023-04-15] MEDS: Multivitamin W/ Minerals 1 TAB PO SCH (09:30)
[2023-04-15] MEDS: Floranex 1 GM Packet PO SCH (09:30)
[2023-04-15 10:56] LABS: Calcium 8.4 mg/dL (7.8-10.44); Chloride 111 mmol/L (98-107); Potassium 3.6 mmol/L (3.5-5.1); Sodium 145 mmol/L (136-145)
[2023-04-15 10:57] LABS: Glucose 92 mg/dL (80-115)
[2023-04-15 10:58] LABS: Anion Gap 11 mmol/L (10-20); Carbon Dioxide 27 mmol/L (23-31)
[2023-04-15 11:00] LABS: Calc. Creatinine Clearance 67 mL/min (70-130); Estimated GFR 96
[2023-04-15 11:01] LABS: BUN (Urea Nitrogen) 9 mg/dL (9.8-20.1)
[2023-04-15 11:06] LABS: Phosphorus 2.4 mg/dL (2.3-4.7)
[2023-04-15] MEDS: Pantoprazole 40 MG VIAL IVP SCH (11:12)
[2023-04-15] MEDS: Valproate Sodium 500 MG in Sodium Chloride 0.9% 100 ML IVPB SCH ×2 (11:13→21:29)
[2023-04-15] MEDS: Dextrose 5%-Lactated Ringers 1,000 ML IV SCH (12:00)
[2023-04-15 17:07] LABS: Anion Gap 8 mmol/L (10-20); BUN (Urea Nitrogen) 8 mg/dL (9.8-20.1); Calc. Creatinine Clearance 64 mL/min (70-130); Calcium 8.3 mg/dL (7.8-10.44); Carbon Dioxide 30 mmol/L (23-31); Chloride 109 mmol/L (98-107); Estimated GFR 94; Glucose 92 mg/dL (80-115); Potassium 3.4 mmol/L (3.5-5.1); Sodium 144 mmol/L (136-145)
[2023-04-15] MEDS ORDERED: Potassium Phosphate 9 MMOL in Sodium Chloride 0.9% 100 ML IVPB SCH (17:45)
[2023-04-15] MEDS: cefTRIAXone\\ROCEPHIN 1 GM in Sodium Chloride 0.9% 100 ML IVPB SCH (17:50)
[2023-04-15] MEDS: Famotidine 20 MG TAB PO SCH (21:28)
[2023-04-16] MEDS: Dextrose 5%-Lactated Ringers 1,000 ML IV SCH ×2 (03:58→16:03)
[2023-04-16 05:05] LABS: #Basophils 0.1 thou/uL (0.0-0.2); #Eosinphils 0.1 thou/uL (0.0-0.7); #Monocytes 0.5 thou/uL (0.11-0.59); #Neutrophils 7.6 thou/uL (1.40-6.50); %Basophils 0.8 % (0.0-1.0); %Eosinophils 1.2 % (0.0-10.0); %Lymphocytes 9.6 % (21.0-51.0); %Monocytes 5.5 % (0.0-10.0); %Neutrophils 79.7 % (42.0-75.0); Hematocrit 36.9 % (36.0-47.0); Hemoglobin 11.5 g/dL (12.0-16.0); Mean Corpuscular HGB CONC 31.2 g/dL (32.0-36.0); Mean Corpuscular Hemoglobin 31.2 pg (27.0-31.0); Mean Platelet Volume 11.1 fL (7.4-10.4); Platelet Count 218 10x3/uL (130-400); RBC Distribution Width 16.3 % (11.5-14.5); Red Blood Cell (RBC) Count 3.69 mill/uL (4.20-5.40); White Blood Cell (WBC) Count 9.5 10x3/uL (4.8-10.8)
[2023-04-16 05:30] LABS: Anion Gap 10 mmol/L (10-20); BUN (Urea Nitrogen) 7 mg/dL (9.8-20.1); Calc. Creatinine Clearance 61 mL/min (70-130); Carbon Dioxide 30 mmol/L (23-31); Chloride 106 mmol/L (98-107); Estimated GFR 88; Glucose 159 mg/dL (80-115); Potassium 3.2 mmol/L (3.5-5.1); Sodium 143 mmol/L (136-145)
[2023-04-16 05:32] LABS: Phosphorus 2.4 mg/dL (2.3-4.7)
[2023-04-16] MEDS: Potassium Chloride 20 MEQ in Premix Bag 1 BAG IVPB SCH ×2 (06:42→09:46)
[2023-04-16] MEDS: Levothyroxine 150 MCG TAB PO SCH (06:43)
[2023-04-16] MEDS: Valproate Sodium 500 MG in Sodium Chloride 0.9% 100 ML IVPB SCH ×2 (09:46→22:47)
[2023-04-16] MEDS: Cholecalciferol 1,000 UNITS (25 MCG) TAB PO SCH (09:48)
[2023-04-16] MEDS: Pantoprazole 40 MG VIAL IVP SCH (09:48)
[2023-04-16] MEDS: Floranex 1 GM Packet PO SCH (09:49)
[2023-04-16] MEDS: Sertraline 100 MG TAB PO SCH (09:49)
[2023-04-16] MEDS: Multivitamin W/ Minerals 1 TAB PO SCH (09:49)
[2023-04-16] MEDS: cefTRIAXone\\ROCEPHIN 1 GM in Sodium Chloride 0.9% 100 ML IVPB SCH (19:03)
[2023-04-16] MEDS ORDERED: Ketorolac Tromethamine 30 MG/ML VIAL IVP PRN (21:43)
[2023-04-16] MEDS ORDERED: Acetaminophen 325 MG Suppository PR PRN (21:43)
[2023-04-17] MEDS: Famotidine 20 MG TAB PO SCH (01:29)
[2023-04-17 05:39] LABS: Anion Gap 7 mmol/L (10-20); BUN (Urea Nitrogen) 5 mg/dL (9.8-20.1); Calc. Creatinine Clearance 68 mL/min (70-130); Calcium 8.3 mg/dL (7.8-10.44); Carbon Dioxide 31 mmol/L (23-31); Chloride 105 mmol/L (98-107); Estimated GFR 96; Glucose 97 mg/dL (80-115); Potassium 3.3 mmol/L (3.5-5.1); Sodium 140 mmol/L (136-145)
[2023-04-17 08:30] LABS: Magnesium 1.8 mg/dL (1.6-2.6); Phosphorus 2.2 mg/dL (2.3-4.7)
[2023-04-17] MEDS: Dextrose 5%-Lactated Ringers 1,000 ML IV SCH ×2 (08:50→21:47)
[2023-04-17] MEDS: Valproate Sodium 500 MG in Sodium Chloride 0.9% 100 ML IVPB SCH ×2 (08:53→21:46)
[2023-04-17] MEDS: Pantoprazole 40 MG VIAL IVP SCH (08:53)
[2023-04-17] MEDS ORDERED: Magnesium 2 GM/50 ML(in water) 2 GM in Premix Bag 1 BAG IVPB SCH (09:00)
[2023-04-17] MEDS ORDERED: Potassium Phosphate 12 MMOL in Sodium Chloride 0.9% 100 ML IVPB SCH (10:00)
[2023-04-17] MEDS: cefTRIAXone\\ROCEPHIN 1 GM in Sodium Chloride 0.9% 100 ML IVPB SCH (17:36)
[2023-04-18] MEDS: Levothyroxine 150 MCG TAB PO SCH (08:33)
[2023-04-18] MEDS: Sertraline 100 MG TAB PO SCH (08:33)
[2023-04-18] MEDS: Cholecalciferol 1,000 UNITS (25 MCG) TAB PO SCH (08:35)
[2023-04-18] MEDS: Multivitamin W/ Minerals 1 TAB PO SCH (08:35)
[2023-04-18] MEDS: Valproate Sodium 500 MG in Sodium Chloride 0.9% 100 ML IVPB SCH (08:41)
[2023-04-18] MEDS: Pantoprazole 40 MG VIAL IVP SCH (08:41)
[2023-04-18] MEDS ORDERED: Sulfameth/Trimethoprim DS 800-160mg TAB PO SCH (09:00)
[2023-04-18] MEDS: Floranex 1 GM Packet PO SCH (10:17)
[2023-04-18 12:40] VITALS: BP 132/76; TEMP 97.8
== END 2023-04-18 14:10 | DRG 871 ==
LOC: ERS 15:33 → 2SE 18:54 → OBSVTOIN 04-14 06:37
PROVIDERS: ADMIT Family Medicine; ATTEND Family Medicine
PROC: 0T9B70Z Drainage of Bladder with Drainage Device, Via Natural or Artificial Opening (ICD-10-PCS; principal; 2023-04-14)
PROC: 3E03329 Introduction of Other Anti-infective into Peripheral Vein, Percutaneous Approach (ICD-10-PCS; 2023-04-14)
DX: A41.51 Sepsis due to Escherichia coli [E. coli] (principal); Q39.1 Atresia of esophagus with tracheo-esophageal fistula; R65.21 Severe sepsis with septic shock; N39.0 Urinary tract infection, site not specified; E87.0 Hyperosmolality and hypernatremia; N17.9 Acute kidney failure, unspecified; Z16.12 Extended spectrum beta lactamase (ESBL) resistance; E87.6 Hypokalemia; E86.0 Dehydration; E87.5 Hyperkalemia; Z20.822 Contact with and (suspected) exposure to COVID-19; E03.9 Hypothyroidism, unspecified; E78.5 Hyperlipidemia, unspecified; Z86.73 Personal history of transient ischemic attack (TIA), and cerebral infarction without residual deficits; M19.90 Unspecified osteoarthritis, unspecified site; Q90.9 Down syndrome, unspecified
CPT/HCPCS: 36415; 36416; 51701; 71045; 71275; 74230; 80048; 80053; 81001; 83605; 83690; 83735; 83880; 84100; 84484; 85025; 85060; 87040; 87077; 87086; 87186; 93005; 94760; 96361; 96365; C9113; J0696; J1650; J1885; J3475; J3480; J3490; J7030; J7042; J7050; J7120; Q9967